=== PATIENT | female | born 1935 | race African-American/Black ===

== ENCOUNTER 2022-06-08 22:25 | Observation (INO) | payer MEDICARE, OTHER ==
[2022-06-08] MEDS ORDERED: Ondansetron PF 4 MG/2 ML Vial IVP PRN (23:30)
[2022-06-08] MEDS ORDERED: Acetaminophen 325 MG TAB PO PRN (23:30)
[2022-06-08] MEDS ORDERED: Ondansetron ODT 4 MG TAB SL PRN (23:30)
[2022-06-08 23:39] VITALS: BMI 23.7
[2022-06-09] MEDS ORDERED: Losartan 25 MG TAB PO SCH ×2 (00:30→09:00)
[2022-06-09 02:46] LABS: Hemoglobin A1c 5.5 % (4.0-6.0)
[2022-06-09 02:54] LABS: Troponin I Less than 0.010 ng/mL (< 0.028)
[2022-06-09 04:20] LABS: Cardiac Risk 3.2 (Less than 4.5)
[2022-06-09 08:09] VITALS: TEMP 98
[2022-06-09] MEDS ORDERED: Enoxaparin Sodium 30 MG/0.3 ML SYRINGE SC SCH (09:00)
[2022-06-09] MEDS ORDERED: Aspirin Chewable 81 MG TAB PO SCH (09:00)
[2022-06-09] MEDS ORDERED: ADENOSINE 60 MG/20 ML VIAL ONE (10:02)
[2022-06-09 16:17] VITALS: BP 145/76
== END 2022-06-09 16:30 | disposition home or self-care (01) ==
LOC: INTOOBSV 23:02 → 2NO 23:02
PROVIDERS: ADMIT Student in an Organized Health Care Education/Training Program; ATTEND Student in an Organized Health Care Education/Training Program
DX: M94.0 Chondrocostal junction syndrome [Tietze] (principal); I45.10 Unspecified right bundle-branch block; R01.1 Cardiac murmur, unspecified; M25.532 Pain in left wrist; R73.9 Hyperglycemia, unspecified; I10 Essential (primary) hypertension; R10.13 Epigastric pain; E78.00 Pure hypercholesterolemia, unspecified; R73.03 Prediabetes; Z79.899 Other long term (current) drug therapy; Z88.0 Allergy status to penicillin; Z20.822 Contact with and (suspected) exposure to COVID-19
CPT/HCPCS: 78452; 80061; 83036; 84443; 84484; 93017; A9500; G0378; U0003; U0005; 36415; J0153